=== PATIENT | male | born 1975 | race Caucasian/White ===

== ENCOUNTER 2021-07-21 06:01 | Day surgery (SDC) | payer BC ==
[~2021-07-21 06:01] MED LIST: Acetaminophen 325 MG Tab PO SCH; Lidocaine 1%/Sod Bicarbonate in NS 8.4% 1 ML Syringe IDERM PRN; Pregabalin 25 MG Cap PO SCH; Sodium Chloride 0.9% 10 ML Syringe FLUSH PRN; oxyCODONE ER 10 MG TAB.ER PO SCH
[2021-07-21] MEDS ORDERED: Lidocaine 1% 4 ML ONE (06:05)
[2021-07-21] MEDS ORDERED: Propofol 200 MG/20 ML SDV ONE ×3 (06:05→08:43)
[2021-07-21] MEDS ORDERED: ceFAZolin 1 GM Vial ONE (06:07)
[2021-07-21] MEDS ORDERED: Midazolam 1 MG/ML 2 ML SDV ONE (06:07)
[2021-07-21] MEDS ORDERED: fentaNYL 100 MCG/2 ML SDV ONE (06:07)
--- NOTE | 2021-07-21 06:32 | PCM.PREANE ---
Preanesthetic Assessment - Anesthesia/Transfusion/Family Hx Anesthesia History: Prior Anesthesia Without Reaction Family History of Anesthesia Reaction: No Transfusion History: No Prior Transfusion(s) - Review of Systems General: No Symptoms Pulmonary: No Symptoms Cardiovascular: No Symptoms Gastrointestinal: No Symptoms Neurological: No Symptoms Other: Reports: None - Physical Assessment NPO Status Date: 07/20/21 NPO Status Time: 22:00 ASA Class: 2 Mental Status: Alert & Oriented x3 Airway Class: Mallampati = 1 Dentition: Reports: Normal Dentition Thyro-Mental Finger Breadths: 3 Mouth Opening Finger Breadths: 3 ROM/Head Extension: Full Lungs: Clear to Auscultation, Normal Respiratory Effort Cardiovascular: Regular Rate, Regular Rhythm - Allergies Allergies/Adverse Reactions: Allergies Allergy/AdvReac Type Severity Reaction Status Date / Time latex Allergy Cannot Verified 07/20/21 16:09 Remember Penicillins Allergy Cannot Verified 07/20/21 16:09 Remember - Acknowledgements Anesthesia Type Planned: Spinal Pt an Appropriate Candidate for the Planned Anesthesia: Yes Alternatives and Risks of Anesthesia Discussed w Pt/Guardian: Yes Pt/Guardian Understands and Agrees with Anesthesia Plan: Yes PreAnesthesia Questionnaire HEENT History: Reports: None Cardiovascular History: Reports: None Respiratory History: Reports: None Gastrointestinal History: Reports: None Genitourinary History: Reports: None, STD MANAGER MEDICAL History: Reports: None Musculoskeletal History: Reports: Other (See Below) Other Musculoskeletal History: left hip pain, right shoulder pain, rotator cuff injury and tear Neurological History: Reports: None Psychiatric History: Reports: Other (See Below) Other Psychiatric History: attention deficit Endocrine/Metabolic History: Reports: None Hematologic History: Reports: None Immunologic History: Reports: None Oncologic (Cancer) History: Reports: None Dermatologic History: Reports: None - Infectious Disease History Infectious Disease History: Reports: None - Past Surgical History Head Surgeries/Procedures: Reports: None HEENT Surgical History: Reports: None Cardiovascular Surgical History: Reports: None Respiratory Surgical History: Reports: None GI Surgical History: Reports: None Female Surgical History: Reports: None Male Surgical History: Reports: None Endocrine Surgical History: Reports: None Neurological Surgical History: Reports: None Musculoskeletal Surgical History: Reports: Shoulder Surgery, Other (See Below) Other Musculoskeletal Surgeries/Procedures:: hip, and shoulder surgery Oncologic Surgical History: Reports: None Dermatological Surgical History: Reports: None - SUBSTANCE USE Tobacco Use Status *Q: Former Tobacco User - HOME MEDS Home Medications: Home Meds Amphetamine/Dextroamphetamine [Adderall XR] 5 mg PO BID 07/20/21 [History] Aspirin [Aspirin EC] 325 mg PO BID #70 tab 07/21/21 [Rx] Cyclobenzaprine [Flexeril] 10 mg PO BID PRN #20 tab 07/21/21 [Rx] oxyCODONE 5 - 10 mg PO Q4H PRN #40 tab 07/21/21 [Rx] - CURRENT (IN HOUSE) MEDS Current Meds: Current Medications Acetaminophen (Acetaminophen 325 Mg Tab) 975 mg PO ONETIME MJ Stop: 07/21/21 15:00 Morphine Sulfate 8 mg/Epinephrine HCl 0.3 mg/Cefuroxime Sodium 750 mg/Ketorolac Tromethamine 30 mg/Sodium Chloride 7.9 ml 0 mg .XX ASDIRECTED PRN PRN Reason: Pain Lactated Ringer's (Ringers, Lactated) 1,000 mls @ 125 mls/hr IV ASDIRECTED MJ Stop: 07/21/21 23:00 Lidocaine/Sodium Bicarbonate (Lidocaine 1%/Sod Bicarbonate In Ns 8.4% 1 Ml Syringe) 0.25 ml IDERM ONETIME PRN PRN Reason: Prior to IV Start Stop: 07/21/21 18:00 Oxycodone HCl (Oxycodone Er 10 Mg Tab.Er) 10 mg PO ONETIME MJ Stop: 07/21/21 15:00 Pregabalin (Pregabalin 25 Mg Cap) 50 mg PO ONETIME MJ Stop: 07/21/21 15:00 Sodium Chloride (Sodium Chloride 0.9% 10 Ml Syringe) 10 ml FLUSH ASDIRECTED PRN PRN Reason: Keep Vein Open Stop: 07/21/21 18:00 Discontinued Medications Cefazolin Sodium (Cefazolin 1 Gm Vial) Confirm Administered Dose 2 gm .ROUTE .STK-MED ONE Stop: 07/21/21 06:08 Fentanyl (Fentanyl 100 Mcg/2 Ml Sdv) Confirm Administered Dose 100 mcg .ROUTE .STK-MED ONE Stop: 07/21/21 06:08 Lidocaine HCl (Xylocaine-Mpf 1%) Confirm Administered Dose 4 mls @ as directed .ROUTE .STK-MED ONE Stop: 07/21/21 06:06 Midazolam HCl (Midazolam 1 Mg/Ml 2 Ml Sdv) Confirm Administered Dose 2 mg .ROUTE .STK-MED ONE Stop: 07/21/21 06:08 Propofol (Propofol 200 Mg/20 Ml Sdv) Confirm Administered Dose 200 mg .ROUTE .STK-MED ONE Stop: 07/21/21 06:06 Tranexamic Acid (Tranexamic Acid 1,000 Mg/10 Ml Amp) Confirm Administered Dose 1,000 mg .ROUTE .STK-MED ONE Stop: 07/21/21 06:10 Vancomycin HCl (Vancomycin 1 Gm Sdv) Confirm Administered Dose 1 gm .ROUTE .STK- MED ONE Stop: 07/21/21 06:10
[2021-07-21] MEDS ORDERED: ePHEDrine 50 MG/ML SDV ONE (07:28)
[2021-07-21] MEDS ORDERED: Lactated Ringers 1,000 ML ONE (07:46)
[2021-07-21] MEDS ORDERED: fentaNYL 100 MCG/2 ML SDV IVPUSH PRN (08:13)
[2021-07-21] MEDS ORDERED: Ondansetron 4 MG/2 ML SDV IVPUSH PRN (08:13)
[2021-07-21] MEDS: Lactated Ringers 1,000 ML IV SCH ×2 (08:35→12:44)
[2021-07-21] MEDS: Vancomycin 1 GM SDV ONE ×3 (08:36→09:07)
[2021-07-21] MEDS: Morphine 8 MG, EPINEPHrine 0.3 MG, Cefuroxime 750 MG, Ketorolac 30 MG, Sodium Chloride ... PRN ×10 (08:36→09:06)
[2021-07-21] MEDS ORDERED: Ondansetron 4 MG/2 ML SDV ONE (09:08)
[2021-07-21] MEDS ORDERED: Ketorolac 30 MG/ML SDV ONE (09:08)
[2021-07-21] MEDS ORDERED: Cyclobenzaprine 10 MG Tab PO PRN ×2 (09:28→09:30)
[2021-07-21] MEDS ORDERED: oxyCODONE 5 MG Tab PO PRN (09:30)
--- NOTE | 2021-07-21 09:38 | PCM.POSTAN ---
POST ANESTHESIA ASSESSMENT - MENTAL STATUS Mental Status: Alert, Oriented - VITAL SIGNS Vital Signs: Last Vital Signs Temp 37.1 C 07/21/21 06:33 Pulse 48 L 07/21/21 06:25 Resp 16 07/21/21 06:25 BP 117/71 07/21/21 06:25 Pulse Ox 97 07/21/21 06:25 - RESPIRATORY Respiratory Status: Respiratory Rate WNL, Airway Patent, O2 Saturation Stable, Supplemental Oxygen - CARDIOVASCULAR CV Status: Pulse Rate WNL, Blood Pressure Stable - GASTROINTESTINAL GI Status: No Symptoms - PAIN Pain Score: 0 - POST OP HYDRATION Hydration Status: Adequate & Stable
--- NOTE | 2021-07-21 10:07 | CR ---
Pelvis and left hip: AP view of the pelvis was obtained as well as AP and crosstable lateral views of the left hip. Comparison: Prior left hip CT study of 07/11/21. Findings: Left hip prosthesis is seen. Components are aligned. Soft tissue air is seen around the left hip compatible with surgical procedure. Joint space within the right hip is maintained. No acute abnormality is otherwise seen. Impression: 1. Satisfactory postoperative radiographic appearance of recently placed left hip prosthesis. Diagnostic code #2
--- NOTE | 2021-07-21 13:13 | PCM48HPAN ---
Post Anesthesia Note - EVALUATION WITHIN 48HRS OF ANESTHETIC Vital Signs in Normal Range: Yes Patient Participated in Evaluation: Yes Respiratory Function Stable: Yes Airway Patent: Yes Cardiovascular Function Stable: Yes Hydration Status Stable: Yes Pain Control Satisfactory: Yes Nausea and Vomiting Control Satisfactory: Yes Mental Status Recovered: Yes Vital Signs: Last Vital Signs Temp 36.3 C 07/21/21 10:25 Pulse 51 L 07/21/21 12:00 Resp 17 07/21/21 12:00 BP 115/80 07/21/21 12:00 Pulse Ox 100 07/21/21 12:00
[2021-07-21] MEDS ORDERED: oxyCODONE 5 MG Tab PO ONE (15:30)
--- NOTE | 2021-08-02 17:25 | PCM.OPNOTE ---
- General Post-Op/Procedure Note Date of Surgery/Procedure: 07/21/21 Operative Procedure(s): left total hip arthroplasty with [employer] robot[employer] Pre Op Diagnosis: left hip osteoarthrosis Post-Op Diagnosis: Same Anesthesia Technique: Local, MAC, Spinal Primary Surgeon: Jaun Rubio Anesthesia Provider: Yaz Gallagher Admissions Supervisor: Neli Soliz Admissions Supervisor: Jennifer Jolly EBL in mLs: 500 Complications: None Condition: Good Free Text/Narrative:: 7 stem 52 cup 28-4 MDM
--- NOTE | 2021-08-03 07:47 | OR ---
DATE OF OPERATION: 07/21/2021 SURGEON: Jaun Rubio MD OPERATION PERFORMED: Left total hip arthroplasty with [employer] robotics. PREOPERATIVE DIAGNOSIS: Left hip osteoarthrosis. POSTOPERATIVE DIAGNOSIS: Left hip osteoarthrosis. ANESTHESIA: Local MAC with spinal. ANESTHESIA PROVIDER: Yaz Gallagher CRNA. ASSISTANTS: Neli Soliz PA-C and Jennifer Jolly LPN. ESTIMATED BLOOD LOSS: 500 mL. COMPLICATIONS: None. CONDITION: Stable. IMPLANTS: 1. [employer] size 7 Accolade II stem. 2. [employer] size 52 mm solid Tritanium II acetabular cup. 3. [employer] size 28 -4/42 MDM components. DESCRIPTION OF PROCEDURE: The patient was identified in the preoperative holding area. Proper site was marked and identified by the surgeon. The patient was taken back to the operative theatre where after adequate anesthesia, the patient was placed in a right lateral decubitus position. Axillary roll was placed. Pegs were placed and well padded. The patient's gluteal fold was parallel to the floor. The left hip was then sterilely prepped and draped in the usual sterile fashion. OR time-out was performed. The patient received 2 g IV Ancef. At this time, 3 focal incisions were made on the iliac crest 3 fingerbreadths posterior to the ASIS, and three 4.0 Schanz pins were placed for the Ricki Lewis robotic array making sure that the [employer] robotic array was down on the iliac crest. At this time, standard posterior incision was made. This was taken down to the IT band and gluteal fascia which was incised along the incisional length. Charnley retractor was then placed. Checkpoint was then placed in the greater trochanter. Leg lengths were evaluated using the [employer] robotics. Takedown of short external rotators as well as the capsule was done from the level of the piriformis down to the lesser trochanter. Hip was then dislocated. Neck cut was completed and was found to be adequate. Attention was turned to the acetabulum. Anterior and posterior acetabular retractors were placed. Circumferential removal of the labrum as well as pulvinar was done at this time. At this point, checkpoint was placed on the superior rim of the acetabulum and was marked. 15 points were then obtained intra-articularly as well as the anterior and posterior horn were marked and then 15 points were marked extra- articularly of the acetabulum for the [employer] robotic plan, was found to be an adequate plan. The 52 mm reamer then was brought in and was completed to the [employer] robotic plan and was found to have a good ream. A 52 mm Tritanium II acetabular cup was then placed on the [employer] robotic arm and was impacted in place in 45 degrees of abduction and 20 degrees of anteversion, and was found to have adequate fit. MDM liner was then impacted into place. Attention was turned to the femur. Box chisel was used out laterally. Starter awl was placed down the canal. Starting with the 0 broach, I was able to broach up to a size 7, which was found to be rotationally and vertically stable. The 28 -4 MDM trial was then placed and was found to have adequate amish of leg lengths, both with the Ricki Felt robotic plan as well as visually and was stable throughout range of motion. Bone hook was used to dislocate the hip. Trial implants were then removed. Size 7 Accolade II stem was impacted in place. The 28 -4 MDM components were constructed on the back table and impacted onto the stem and the hip was relocated. #5 Ethibond suture was used for closure of the short external rotators and capsule. 1 L pulse lavage irrigation with Ancef was irrigated through the hip along with 400 mL Irrisept irrigation. Periarticular injection was completed. Topical tranexamic acid and vancomycin powder were applied. #2 barbed suture was used for closure of the IT band and gluteal fascia. 2-0 Vicryl was used subcutaneously and Prineo was used for skin closure. The patient tolerated the procedure well and sent to PACU in stable condition. MMODAL /[id number]
== END 2021-07-21 15:33 | disposition home or self-care (01) ==
LOC: JD.SDS 06:01
PROVIDERS: ATTEND Orthopaedic Surgery
DX: M16.12 Unilateral primary osteoarthritis, left hip (principal); Z87.891 Personal history of nicotine dependence; Z88.0 Allergy status to penicillin; Z79.899 Other long term (current) drug therapy; Z98.890 Other specified postprocedural states; Z91.040 Latex allergy status
CPT/HCPCS: 27130; 36415; 73501; 85610; 85730; 86850; 86900; 86901; 97110; 97116; 97161; A9270; C1713; C1776; J0171; J0690; J0697; J1885; J2250; J2270; J2405; J2704; J3010; J3370; J7120; 01214